=== PATIENT | female | born 1970 | race Caucasian/White ===

== ENCOUNTER 2016-10-08 08:12 | Emergency (ER) | payer OTHER ==
[~2016-10-08] VITALS: Ht 162.6 cm; Wt 81.1 kg
[~2016-10-08 08:12] MED LIST: CEFDINIR300 MG PO; CIPRO500 MG PO; FLEXERIL5 MG PO; HYCODAN SYRUP480 ML PO; MELOXICAM15 MG PO; MOTRIN600 MG PO; NAPROSYN500 MG PO; NORCO 5/3251 TABLET PO; PERCOCET 5/31 TABLET PO; PREDNISONE20 MG PO; ULTRAM50 MG PO; VALIUM5 MG PO; VICODIN 5-3001 EACH PO; VITAMIN B-12 PO; ZOLOFT25 MG PO
[2016-10-08 08:46] LABS: HEMATOCRIT 38.4 % (36.0-46.0); MCH 28.6 PG (29.0-34.0); MCHC 32.6 G/DL (30.0-36.0); MCV 87.9 FL (83-99); MEAN PLAT.VOLUME 9.3 uM^3 (9.5-12.4); PLATELET COUNT 281 K/uL (156-360); RBC DIS.WIDTH-CV 13.4 % (11.8-14.6); RBC DIS.WIDTH-SD 43.3 % (39-53); RED BLOOD COUNT 4.37 M/uL (3.80-5.20); WHITE BLOOD COUNT 8.7 K/uL (4.1-10.2)
[2016-10-08 08:56] LABS: CHLORIDE 106 mEq/L (99-109); POTASSIUM 3.2 mEq/L (3.7-5.4); SODIUM 139 mEq/L (136-147)
[2016-10-08 08:58] LABS: GLUCOSE 95 mg/dL (70-99)
[2016-10-08 08:59] LABS: ANION GAP 7 MEQ/L (2-14)
[2016-10-08 09:00] LABS: TOTAL BILIRUBIN 0.6 mg/dL (0.0-1.0)
[2016-10-08 09:02] LABS: ALKALINE PHOSPHATASE 107 IU/L (3-129); GFR ESTIMATE (CALCULATED) > 59 mL/min/
[2016-10-08 09:03] LABS: UREA NITROGEN (BUN) 9 mg/dL (9-23)
[2016-10-08 09:11] LABS: QUANTITATIVE HCG < 4.0 MIU/ML
[2016-10-08] MEDS ORDERED: LYRICA75 MG PO (09:22)
[2016-10-08] MEDS ORDERED: LO-DOSE ASPIRIN81 M2 PO (09:22)
[2016-10-08] MEDS ORDERED: LEXAPRO10 MG PO (09:23)
[2016-10-08] MEDS ORDERED: TOPAMAX25 MG PO (09:23)
[2016-10-08] MEDS ORDERED: ELAVIL10 MG PO (09:23)
[2016-10-08] MEDS ORDERED: LEXAPRO20 MG PO (09:24)
[2016-10-08] MEDS ORDERED: SUMATRIPTAN SUC25 MG PO (09:25)
[2016-10-08] MEDS ORDERED: PROMETHAZINE HC25 M1 PO (09:25)
[2016-10-08] MEDS ORDERED: VOLTAREN-XR100 MG PO (09:25)
[2016-10-08 10:30] LABS: ADD MIUA? YES; BILIRUBIN NEGATIVE; BLOOD NEGATIVE; COLOR YELLOW ((YELLOW)); GLUCOSE (STRIP) NEGATIVE; KETONES NEGATIVE; LEUKOCYTES TRACE; NITRITE NEGATIVE; PROTEIN (STRIP) NEGATIVE; UROBILINOGEN 0.2 MG/DL (0.2-1.0)
[2016-10-08 10:43] LABS: BACTERIA RARE /HPF; EPITHELIAL CELLS 1+ /HPF; MUCUS 3+ /LPF; RED BLOOD CELLS 0-5 /HPF (0-5); UCUL ADDED? NO; UNCLASSIFIED CASTS 0-5 /LPF; WHITE BLOOD CELLS 0-5 /HPF (0-5)
[2016-10-08 13:24] VITALS: BP 102/75
[2016-10-08] MEDS ORDERED: IMODIUM MS REL1 EACH PO (13:25)
[2016-10-08] MEDS ORDERED: ZOFRAN ODT4 MG PO (13:25)
[2016-10-08] MEDS ORDERED: BENTYL20 MG PO (13:25)
== END 2016-10-08 13:53 | disposition home or self-care (01) ==
LOC: EME 08:12
DX: R10.9 Unspecified abdominal pain (principal); R19.7 Diarrhea, unspecified; M79.7 Fibromyalgia
CPT/HCPCS: 74177; 80053; 81003; 84702; 85027; 99281; 99285; J1885; J2405; J7030

== ENCOUNTER 2016-12-26 21:10 | Observation (INO) | payer OTHER ==
[~2016-12-26] VITALS: Ht 162.6 cm; Wt 84.1 kg
[~2016-12-26 21:10] MED LIST changes: +BENTYL20 MG PO; +ELAVIL10 MG PO; +IMODIUM MS REL1 EACH PO; +LEXAPRO10 MG PO; +LEXAPRO20 MG PO; +LO-DOSE ASPIRIN81 M2 PO; +LYRICA75 MG PO; +PROMETHAZINE HC25 M1 PO; +SUMATRIPTAN SUC25 MG PO; +TOPAMAX25 MG PO; +VOLTAREN-XR100 MG PO; +ZOFRAN ODT4 MG PO
[2016-12-26 21:43] LABS: HEMATOCRIT 39.5 % (36.0-46.0); MCH 29.2 PG (29.0-34.0); MCHC 33.7 G/DL (30.0-36.0); MCV 86.8 FL (83-99); MEAN PLAT.VOLUME 9.4 uM^3 (9.5-12.4); PLATELET COUNT 296 K/uL (156-360); RBC DIS.WIDTH-CV 13.1 % (11.8-14.6); RBC DIS.WIDTH-SD 41.5 % (39-53); RED BLOOD COUNT 4.55 M/uL (3.80-5.20); WHITE BLOOD COUNT 8.8 K/uL (4.1-10.2)
[2016-12-26 21:52] LABS: CHLORIDE 107 mEq/L (99-109); POTASSIUM 3.6 mEq/L (3.7-5.4); SODIUM 137 mEq/L (136-147)
[2016-12-26 21:54] LABS: GLUCOSE 111 mg/dL (70-99)
[2016-12-26 21:55] LABS: ANION GAP 7 MEQ/L (2-14)
[2016-12-26 21:58] LABS: GFR ESTIMATE (CALCULATED) > 59 mL/min/
[2016-12-26 21:59] LABS: UREA NITROGEN (BUN) 12 mg/dL (9-23)
[2016-12-26 22:05] LABS: TROP-I INTERPRETATION NEGATIVE; TROPONIN-I < 0.01 ng/mL (0.0-0.30)
[2016-12-27 01:47] VITALS: BP 102/60
[2016-12-27 04:00] VITALS: BP 108/54
[2016-12-27 05:04] LABS: TROP-I INTERPRETATION NEGATIVE; TROPONIN-I < 0.01 ng/mL (0.0-0.30)
[2016-12-27 05:57] LABS: HDL CHOLESTEROL 52 MG/DL (Desirable>=50); LDL CHOLESTEROL 81 mg/dL (Desirable<100); NON-HDL CHOLESTEROL 95 mg/dL (Desirable<160); TOTAL CHOLESTEROL 147 mg/dL (Desirable<200); TRIGLYCERIDES 71 MG/DL (Normal: <150)
[2016-12-27 07:35] VITALS: BP 103/65
[2016-12-27] MEDS ORDERED: ASPIR-LOW81 MG PO (08:40)
[2016-12-27] MEDS ORDERED: PRAVACHOL10 MG PO (08:43)
[2016-12-27 10:51] LABS: TROP-I INTERPRETATION NEGATIVE; TROPONIN-I < 0.01 ng/mL (0.0-0.30)
== END 2016-12-27 12:02 | disposition home or self-care (01) ==
LOC: EME 21:10 → EDOF 12-27 00:47 → 5WEST 12-27 01:28
PROVIDERS: Physician Assistant Medical
DX: R07.89 Other chest pain (principal); G43.909 Migraine, unspecified, not intractable, without status migrainosus; M79.7 Fibromyalgia; F32.9 Major depressive disorder, single episode, unspecified; R94.31 Abnormal electrocardiogram [ECG] [EKG]; G89.29 Other chronic pain; F43.10 Post-traumatic stress disorder, unspecified; M19.90 Unspecified osteoarthritis, unspecified site; I10 Essential (primary) hypertension
CPT/HCPCS: 71020; 80048; 80061; 84484; 85027; 93005; 99281; 99285; G0378; J1200; J1885; J2765; J3480; J7030

== ENCOUNTER 2018-01-22 07:17 | Day surgery (SDC) | payer OTHER ==
[~2018-01-22] VITALS: Ht 162.6 cm; Wt 89.0 kg
[~2018-01-22 07:17] MED LIST changes: +ASPIR-LOW81 MG PO; +ATIVAN0.5 MG PO; +CELEXA20 MG PO; +DEPAKOTE ER250 MG PO; +DIUREX MAX50 MG PO; +FIORICET 50-301 EAC1 PO; +LYRICA100 MG PO; -LYRICA75 MG PO; +PRAVACHOL10 MG PO; +ZANAFLEX2 M1 PO
[2018-01-22 08:01] VITALS: BP 116/65
[2018-01-22 12:40] VITALS: BP 145/79
[2018-01-22 13:28] VITALS: BP 123/93
== END 2018-01-22 13:30 | disposition home or self-care (01) ==
LOC: SDC 07:17
PROC: 0L8P0ZZ Division of Left Lower Leg Tendon, Open Approach (ICD-10-PCS; principal; 2018-01-22)
DX: M67.02 Short Achilles tendon (acquired), left ankle (principal); M79.672 Pain in left foot; Z88.1 Allergy status to other antibiotic agents; Z91.040 Latex allergy status
CPT/HCPCS: J0131; J0330; J0690; J1100; J1170; J1885; J2250; J2405; J2765; J2795; J3010; S0020